=== PATIENT | female | born 1975 | race Caucasian/White ===

== ENCOUNTER 2018-07-30 13:53 | Emergency (ER) | payer OTHER ==
[2018-07-30 14:09] VITALS: BP 108/50; PULSE 55; TEMP 97.9; BMI 26.2
--- NOTE | 2018-07-30 14:53 | PDOC ---
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 Patient scrubbed out, used eye wash at station in the operating room. Incident occurred approximately 3 hours ago. Completed the case and came for evaluation. Patient states source patient may be tested but at this point has no risk factors or history patient has had a body fluid exposure in the past and feels relatively safe that this will not be significant exposure. However we'll comply with the testing but feels will not take the anti-retroviral medications Timing: this morning Severity: mild, moderate Exposed Location: Bilateral: Eye(s) (use I irrigating device in operating room) Assessing Significant Risk PEP: Yes Visibily Bloody Fluid, Yes Potentially Infectious Fluid Past History - Travel Traveled outside of the country in the last 30 days: No Close contact w/someone who was outside of country & ill: No - Past Medical History Allergies/Adverse Reactions: Allergies Allergy/AdvReac Type Severity Reaction Status Date / Time latex [Latex] Allergy Rash Verified 07/30/18 14:09 Home Medications: Ambulatory Orders NK [No Known Home Medication] 07/30/18 Anemia: No Asthma: No Cancer: No Cardiac Disorders: No CVA: No COPD: No CHF: No Dementia: No Diabetes: No GI Disorders: No Disorders: No HTN: No Hypercholesterolemia: No Liver Disease: No Seizures: No Thyroid Disease: No - Surgical History Abdominal Surgery: Yes (unbilical hernia repair) - Immunization History Td Vaccination: Yes Immunization Up to Date: Yes - Suicide/Smoking/Psychosocial Hx Smoking Status: No Smoking History: Never smoked Number of Cigarettes Smoked Daily: 0 Hx Alcohol Use: No Drug/Substance Use Hx: No Substance Use Type: None Review of Systems - Review of Systems Able to Perform ROS?: Yes Is the patient limited Nepali proficient: Yes Constitutional: Yes: Symptoms Reported, See HPI, Malaise HEENTM: Yes: Symptoms Reported, See HPI. No: Eye Pain, Blurred Vision, Tearing , Recent change in vision Respiratory: Yes: See HPI. No: Symptoms reported, Cough Integumentary: Yes: See HPI. No: Symptoms Reported All Other Systems: Reviewed and Negative *Physical Exam - Vital Signs Last Vital Signs Temp Pulse Resp BP Pulse Ox 97.9 F 55 L 18 108/50 99 07/30/18 14:07 07/30/18 14:07 07/30/18 14:07 07/30/18 14:07 07/30/18 14:07 - Physical Exam General Appearance: Yes: Nourished, Appropriately Dressed. No: Apparent Distress HEENT: positive: SOFI (vision within normal limits, no erythema or drainage noted), Normal ENT Inspection, TMs Normal, Pharynx Normal Neck: positive: Supple. negative: Lymphadenopathy (R), Lymphadenopathy (L) Respiratory/Chest: positive: Lungs Clear, Normal Breath Sounds Gastrointestinal/Abdominal: positive: Soft. 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 Patient has been given for consent and refusing reflexes medication. All vaccines are up-to-date. We'll wait for HIV testing results and will follow-up with [facility] [facility] [employer] Medical Decision Making - Medical Decision Making 07/30/18 17:36 all lab works reported, HIV testing negative. Patient understands for follow-up with the [facility] on Wednesday *DC/Admit/Observation/Transfer Diagnosis at time of Disposition: Exposure to blood and/or body fluid - Discharge Dispostion Disposition: HOME Condition at time of disposition: Stable Decision to Admit order: No - Referrals Referrals: Elena Martínez [Primary Care Provider] - - Patient Instructions Printed Discharge Instructions: How to Handle Body Fluid Exposure -- Healthcare Worker Additional Instructions: May use lubricating eyedrops today as needed, do not use Visine Up with employee health on Wednesday - Post Discharge Activity Forms/Work/School Notes: Back to Work
[2018-07-30 15:40] LABS: BASO % 0.7 % (0-2.0); EOS % 1.9 % (0-4.5); HEMOGLOBIN 13.6 GM/dL (10.7-15.3); LYMPH % 32.3 % (8-40); MCH 29.2 pg (25.7-33.7); MCHC 34.1 g/dl (32.0-36.0); MEAN CELL VOLUME 85.6 fl (80-96); MEAN PLT VOLUME 8.7 fl (7.5-11.1); MONO % 7.2 % (3.8-10.2); NEUT % 57.9 % (42.8-82.8); PLATELET COUNT 208 K/MM3 (134-434); RBC 4.67 M/mm3 (3.60-5.2); WHITE BLOOD COUNT 6.2 K/mm3 (4.0-10.0)
[2018-07-30 16:02] LABS: ANION GAP 7 MMOL/L (8-16); BLOOD UREA NITROGEN 9 mg/dL (7-18); CALCIUM 8.4 mg/dL (8.5-10.1); CHLORIDE 104 mmol/L (98-107); CHOLESTEROL 179 mg/dL (50-200); CO2 28 mmol/L (21-32); CREATININE 0.6 mg/dL (0.55-1.02); GAMMA GLUTAMYL TRANSPEPTIDASE 19 U/L (5-85); GLUCOSE,RANDOM 85 mg/dL (74-106); POTASSIUM 3.7 mmol/L (3.5-5.1); SGOT/AST 19 U/L (15-37); SGPT/ALT 21 U/L (12-78); SODIUM 139 mmol/L (136-145); URIC ACID 2.7 mg/dL (2.6-7.2)
[2018-07-30 16:05] LABS: ALK PHOS 63 U/L (45-117); BILIRUBIN,TOTAL 0.4 mg/dL (0.2-1.0); LDH 163 U/L (84-246); TOT PROT 7.6 g/dl (6.4-8.2); TRIGLYCERIDES 198 mg/dL (35-160)
[2018-08-02 16:19] LABS: HBsAG SCREEN Negative (Negative)
== END 2018-07-30 17:30 | disposition home or self-care (01) ==
LOC: JERFT 13:53
DX: Z77.21 Contact with and (suspected) exposure to potentially hazardous body fluids (principal); X58.XXXA Exposure to other specified factors, initial encounter; Y93.89 Activity, other specified; Y92.234 Operating room of hospital as the place of occurrence of the external cause; Y99.0 Civilian activity done for income or pay
CPT/HCPCS: 36415; 80053; 82465; 82977; 83615; 84100; 84478; 84550; 85025; 86317; 86706; 86803; 87340; 87389; 99281-25

== ENCOUNTER 2018-11-18 18:08 | Emergency (ER) | payer OTHER ==
[2018-11-18 18:18] VITALS: BP 108/49; PULSE 72; TEMP 98.4; BMI 25.7
[2018-11-18] MEDS ORDERED: TETRACAINE 0.5% HCL 0.6ML DROPPER.BOTTLE OU ONE (19:27)
--- NOTE | 2018-11-18 19:40 | PDOC ---
History of Present Illness - General Chief Complaint: Blood/Body Fluid Exposure SJR Stated Complaint: EYE PROBLEM Time Seen by Provider: 11/18/18 19:26 History Source: Patient Exam Limitations: No Limitations - History of Present Illness Initial Comments: 11/18/18 19:40 Best Contact: PCP: None Pmhx: denies Pshx: 2015: Umbilical hernia repair @[facility], 2012: C section @ [facility], 2005: C section @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 Patient states after her case, she was spraying a chemical called [employer] enzymatic foam spray onto the instruments. Once done, patient placed the bottle on a shelf above her when she states a drop of a chemical went into her right eye causing irritation but denies blurry vision, eye pain, diplopia. Patient states she immediately rinsed at the eyewash for approximately 5 minutes. Patient states she was ready to go home until she was informed by a surgeon to come straight to the ER to be evaluated. Patient denies skin irritation, fever , chills, nausea/vomiting, difficulty breathing, throat irritation, tongue swelling, chest pain, shortness of breath. Past History - Past Medical History Allergies/Adverse Reactions: Allergies Allergy/AdvReac Type Severity Reaction Status Date / Time latex [Latex] Allergy Rash Verified 11/18/18 18:18 Home Medications: Ambulatory Orders Dextran 70/Hypromellose/Pf [Artificial Tears Drops] 1 each OD TID #50 droperette 11/18/18 Anemia: No Asthma: No Cancer: No Cardiac Disorders: No CVA: No COPD: No CHF: No Dementia: No Diabetes: No GI Disorders: No Disorders: No HTN: No Hypercholesterolemia: No Liver Disease: No Seizures: No Thyroid Disease: No - Surgical History Abdominal Surgery: Yes (unbilical hernia repair) - Immunization History Td Vaccination: Yes Immunization Up to Date: Yes - Suicide/Smoking/Psychosocial Hx Smoking Status: No Smoking History: Never smoked Have you smoked in the past 12 months: No Number of Cigarettes Smoked Daily: 0 Information on smoking cessation initiated: No Hx Alcohol Use: No Drug/Substance Use Hx: No Substance Use Type: None Review of Systems - Review of Systems Able to Perform ROS?: Yes Comments:: 11/18/18 19:44 CONSTITUTIONAL: Absent: fever, chills, diaphoresis, generalized weakness, malaise, loss of appetite HEENT: Right eye irritation Absent: rhinorrhea, nasal congestion, throat pain, throat swelling, difficulty swallowing, mouth swelling, ear pain, visual Changes SKIN: Absent: rash, itching, pallor Is the patient limited Upper Sorbian proficient: No *Physical Exam - Vital Signs Last Vital Signs Temp Pulse Resp BP Pulse Ox 98.4 F 72 16 108/49 L 100 11/18/18 18:14 11/18/18 18:14 11/18/18 18:14 11/18/18 18:14 11/18/18 18:14 - Physical Exam Comments: 11/18/18 19:45 GENERAL: Well developed, well nourished. Awake and alert. No acute distress. HEENT: Normocephalic, atraumatic. PERRLA, EOMI. Sclera are non-icteric. Moist mucous membranes. Oropharynx is clear. SKIN: Warm and dry. Normal capillary refill. No rashes. No jaundice. Right eye: Visual Acuity: Lid and lashes: neg swelling/erythema/pain on palp, negative lesions/crusting /lacerations/pytosis Upper and lower eyelids everted; neg FB noted Conjunctiva: +injected but no chemosis, discharge, subconjunctival hemorrhage , lacerations or lesions Cornea: Under fluorescein stain, clear, bright and smooth surface. No foreign body/rust ring/abscess/laceration/scarring Anterior chamber: Clear/right and deep. Neg hyphaema/ hyphema Iris and pupil: Similar appearance between eyes negative lesions, laceration or prolapse/ pupils equal, round and reactive to light Lens and posterior chamber: Normal, negative white pupil Moderate Sedation - Procedure Monitoring Vital Signs: Procedure Monitoring Vital Signs Temperature 98.4 F 11/18/18 18:14 Pulse Rate 72 11/18/18 18:14 Respiratory Rate 16 11/18/18 18:14 Blood Pressure 108/49 L 11/18/18 18:14 O2 Sat by Pulse Oximetry (%) 100 11/18/18 18:14 *DC/Admit/Observation/Transfer Diagnosis at time of Disposition: Irritation of right eye, Exposure to chemical irritant - Discharge Dispostion Disposition: HOME Condition at time of disposition: Stable Decision to Admit order: No - Prescriptions Prescriptions: Dextran 70/Hypromellose/Pf [Artificial Tears Drops] 1 each OD TID #50 droperette - Referrals Referrals: Roby Giraldo MD [Staff Physician] - - Patient Instructions Printed Discharge Instructions: DI for Conjunctivitis Additional Instructions: Avoid rubbing your eyes As per our conversation, you'll need to follow-up with the ell tutor on Wednesday11/21/2018. Please call Dr. Giraldo/[phone] It is never advisable to put any chemicals on the top shelf especially if the bottle is not secured tightly where it came drip out. Return back to the emergency department for severe/persistent/worsening symptoms. Dr. Giraldo/ell tutor [phone]/ will see pt in two days. continue irrigation on and off. Artificial tears recommended - Post Discharge Activity Forms/Work/School Notes: Back to Work Progress Note - Progress Note Progress Note: 1935hrs: Called Poison Control [phone]. Stella/agronomy specialist PH fairly neutral at 7 product Can cause irritation Room temp eye wash x5 mins Rest then repeat for 5 mins again total of 20 mins If severe redness with pain/Ophthalmology consult 2017hrs: Called ophthalmology service delivery management consultant: Dr. Lizarraga [phone]...Dr. Giraldo service delivery management consultant 2027hrs: After total 30 mins of eye wash/ 5 mins on/ 5 mins off Pt states she feels better. Irritation subsided 99% Pt given sure instructions to return to the emergency department for severe/ persistent/worsening or recurrent symptoms Otherwise, patient should follow with ell tutor which will be given to her upon discharge
[2018-11-18] MEDS ORDERED: TETRACAINE 0.5% HCL 0.6ML DROPPER.BOTTLE OD ONE (20:01)
[2018-11-18] MEDS ORDERED: TETRACAINE 0.5% OPHTH SOLN 2 ML BOTTLE ONE (20:03)
[2018-11-18] MEDS ORDERED: FLUORESCEIN NA 1 EA STRIP ONE (20:04)
== END 2018-11-18 21:33 | disposition home or self-care (01) ==
LOC: JER 18:08 → JERFT 18:08 → JER 21:33
PROC: 4A07X0Z Measurement of Visual Acuity, External Approach (ICD-10-PCS; principal; 2018-11-18)
DX: Z77.098 Contact with and (suspected) exposure to other hazardous, chiefly nonmedicinal, chemicals (principal); X58.XXXA Exposure to other specified factors, initial encounter; Y93.89 Activity, other specified; Y92.234 Operating room of hospital as the place of occurrence of the external cause; Y99.0 Civilian activity done for income or pay
CPT/HCPCS: 99281-25

== ENCOUNTER 2022-12-02 04:31 | Day surgery (SDC) | payer OTHER ==
[2022-12-01 10:45] VITALS: BMI 24.4
[2022-12-02] MEDS ORDERED: MIDAZOLAM HCL 2 MG/2 ML SINGLE DOSE VIAL ONE (07:22)
[2022-12-02 08:37] VITALS: TEMP 97.4
[2022-12-02 09:21] VITALS: RESP 16
[2022-12-02 10:26] VITALS: BP 111/63; PULSE 58
== END 2022-12-02 10:00 | disposition home or self-care (01) ==
LOC: JASU-ENDO 04:31
PROVIDERS: ATTEND Internal Medicine Gastroenterology
PROC: 0DB78ZX Excision of Stomach, Pylorus, Via Natural or Artificial Opening Endoscopic, Diagnostic (ICD-10-PCS; 2022-12-02)
PROC: 0DB98ZX Excision of Duodenum, Via Natural or Artificial Opening Endoscopic, Diagnostic (ICD-10-PCS; principal; 2022-12-02 08:00)
DX: Z12.11 Encounter for screening for malignant neoplasm of colon (principal); K25.3 Acute gastric ulcer without hemorrhage or perforation; K29.50 Unspecified chronic gastritis without bleeding; K56.2 Volvulus; Z80.0 Family history of malignant neoplasm of digestive organs
CPT/HCPCS: 81025; 88305-TC; 88342-TC

== ENCOUNTER 2023-03-12 04:37 | Day surgery (SDC) | payer OTHER ==
[2023-03-10 13:10] VITALS: BMI 24.4
[2023-03-12] MEDS ORDERED: MIDAZOLAM HCL 2 MG/2 ML SINGLE DOSE VIAL ONE (07:42)
[2023-03-12 09:38] VITALS: TEMP 97.5
[2023-03-12 11:02] VITALS: BP 100/68; PULSE 55; RESP 18
== END 2023-03-12 11:00 | disposition home or self-care (01) ==
LOC: JASU-ENDO 04:37
PROVIDERS: ATTEND Internal Medicine Gastroenterology
PROC: 0DB78ZX Excision of Stomach, Pylorus, Via Natural or Artificial Opening Endoscopic, Diagnostic (ICD-10-PCS; 2023-03-12)
PROC: 0DB98ZX Excision of Duodenum, Via Natural or Artificial Opening Endoscopic, Diagnostic (ICD-10-PCS; principal; 2023-03-12 10:00)
DX: K29.50 Unspecified chronic gastritis without bleeding (principal)
CPT/HCPCS: 81025; 88305-TC; 88342-TC

== ENCOUNTER 2023-07-23 10:29 | Emergency (ER) | payer OTHER ==
[2023-07-23 10:41] VITALS: BP 94/56; PULSE 75; RESP 16; TEMP 98.5; BMI 25.0
[2023-07-23] MEDS ORDERED: BACITRACIN ZINC 15 GM TUBE TOPICAL OINTMENT ONE (11:03)
== END 2023-07-23 11:31 | disposition home or self-care (01) ==
LOC: JERFT 10:29
PROC: 0HQ1XZZ Repair Face Skin, External Approach (ICD-10-PCS; principal; 2023-07-23)
DX: S01.81XA Laceration without foreign body of other part of head, initial encounter (principal); R19.04 Left lower quadrant abdominal swelling, mass and lump; R22.0 Localized swelling, mass and lump, head
CPT/HCPCS: 99282-25

== ENCOUNTER 2023-10-15 08:08 | Emergency (ER) | payer OTHER ==
[2023-10-15 08:38] VITALS: BP 117/75; PULSE 60; RESP 18; TEMP 98.1; BMI 27.2
[2023-10-15] MEDS ORDERED: MAG HYDROX/AL HYDROX/SIMETH 30 ML UNIT-DOSE CUP PO ONE (09:57)
[2023-10-15] MEDS ORDERED: MAG HYDROX/AL HYDROX/SIMETH 30 ML UNIT-DOSE CUP ONE (10:14)
== END 2023-10-15 13:31 | disposition home or self-care (01) ==
LOC: JER 08:08 → JERFT 08:08 → JER 13:31
DX: R13.10 Dysphagia, unspecified (principal); R07.0 Pain in throat; R11.2 Nausea with vomiting, unspecified
CPT/HCPCS: 70490-TC; 71250-TC; 99284-25